=== PATIENT | male | born 1950 | race Caucasian/White ===

== ENCOUNTER → 2025-03-20 | Outpatient (CLI) | payer MEDICARE ==
[~2025-03-20] MED LIST: ASPI81CH PO; ASPIR 8181 M1 PO; ATOR20 PO; FERSU300 PO; FISH OIL 1,2001 EAC1 PO; GLUCOPHAGE1000 MG PO; HYDR1TAB94 PO; METF500 PO; METO100ER PO; MULTIVITAMINS1 EAC3 PO; OMEGA-3 FISH O1 EAC6 PO; VITAMIN D325 MC3 PO
== END ==
LOC: LAB 14:56 → LAB SHORT 14:56
DX: L08.0 Pyoderma (principal); L08.9 Local infection of the skin and subcutaneous tissue, unspecified
CPT/HCPCS: 87070; 87077; 87147; 87186; 87205